=== PATIENT | male | born 1980 | race Hispanic/Latino ===

== ENCOUNTER → 2024-09-26 | Day surgery (SDC) | payer OTHER ==
[~2024-09-26] MED LIST: ABILIFY20 MG PO; BENADRYL25 M1 PO; BUPROPION HCL150 MG PO; BUSPIRONE HCL10 MG PO; FENTANYL CITRATE/PF 100MCG/2 ML INJ ONE; HYOSCYAMINE SULFATE 0.5 MG/ML INJ ONE; LAMICTAL5 MG PO; LIDOCAINE HCL 2% LOCAL INJ 5 ML SDV VIAL INJ ONE; MIDAZOLAM HCL 2 MG/2 ML VIAL ONE; PROPOFOL IV EMULSION 10 MG/ML 20 ML VIAL ONE; SIMVASTATIN20 MG PO
[2024-09-26] MEDS: LACTATED RINGER'S 1,000 ML ONE (13:50)
[2024-09-26 17:15] VITALS: BP 115/79; PULSE 83; RESP 16; TEMP 97.9; O2SAT 98
[2024-09-26 17:29] LABS: CDIFF AG QUIK CHEK NEGATIVE (NEGATIVE); CDIFF TOX QUIK CHEK NEGATIVE (NEGATIVE); WBC,FECAL (FECAL LACTOFERRIN) POSITIVE (NEGATIVE)
[2024-09-27 06:47] LABS: C-REACTIVE PROTEIN 15 mg/L (0-10)
[2024-09-29 20:25] LABS: ENDOMYSIAL ANTIBODIES, IGA Negative (Negative)
[2024-09-30 21:40] LABS: IMMUNOGLOBULIN A 415 mg/dL (90-386); TISSUE TRANSGLUTAMINASE IGA AB <2 U/mL (0-3)
== END | disposition home or self-care (01) ==
LOC: OR 13:17
PROVIDERS: ATTEND Internal Medicine Gastroenterology
DX: Z12.11 Encounter for screening for malignant neoplasm of colon (principal); D12.2 Benign neoplasm of ascending colon; D12.4 Benign neoplasm of descending colon; D12.5 Benign neoplasm of sigmoid colon; K51.30 Ulcerative (chronic) rectosigmoiditis without complications; K64.8 Other hemorrhoids; Z71.3 Dietary counseling and surveillance; E78.00 Pure hypercholesterolemia, unspecified; F41.9 Anxiety disorder, unspecified; F31.9 Bipolar disorder, unspecified; Z01.810 Encounter for preprocedural cardiovascular examination; Z79.899 Other long term (current) drug therapy; Z68.31 Body mass index [BMI] 31.0-31.9, adult
CPT/HCPCS: 45380; 45385; 82784; 83516; 83630; 83993; 86140; 86256; 87045; 87177; 87324; 87449; 93005; J1980; J2003; J2250; J2704; J3010; J7121